=== PATIENT | female | born 1985 | race Caucasian/White ===

== ENCOUNTER 2019-02-08 05:28 | Emergency (ER) | payer SELFPAY ==
[~2019-02-08] VITALS: Ht 154.9 cm; Wt 94.8 kg
[2019-02-08 05:34] VITALS: BP 145/78
--- NOTE | 2019-02-08 05:38 | NUR ---
PT AMBULATED TO ER BED 7
--- NOTE | 2019-02-08 05:42 | NUR ---
PT BIB SELF C/O PAINFUL URINATION X3 DAYS. PT STATES 07/04 SHARP DYSRUIA. DENIES TRAUMA. DENIES FEVER OR CHILLS. DENIES N/V/D. SKIN WARM DRY AND INTACT. PT ACTING APPROPRIATLY. PT IN BED;BED IN LOWER LOCKED POSITION. PENDING [facility]T ROSARIO. PMH: [facility] Addendum: 02/08/19 at 0553 by [email or web address] PT BIB SELF C/O PAINFUL URINATION X3 DAYS. PT STATES 910 SHARP DYSRUIA. +FREQUENCY, +URGENCY. DENIES TRAUMA. DENIES FEVER OR CHILLS. DENIES N/V/D. SKIN WARM DRY AND INTACT. PT ACTING APPROPRIATLY. PT IN BED;BED IN LOWER LOCKED POSITION. PENDING EVERETT ROSARIO. PMH: [facility]
--- NOTE | 2019-02-08 05:47 | NUR ---
DR. HUBBARD AT BEDSIDE FOR EVALUATION.
--- NOTE | 2019-02-08 05:47 | NUR ---
ERMD AT BEDSIDE
[2019-02-08] MEDS ORDERED: PHENAZOPYRIDINE 100 MG TAB PO ONE (05:55)
[2019-02-08] MEDS ORDERED: SULFAMETH/TRIMETH DS 800/160MG 1 TAB PO ONE (05:55)
--- NOTE | 2019-02-08 06:07 | NUR ---
Patient discharged with v/s stable. Patient states pain has decreased and is ready to go home, patient acting appropriatly and pain 3/10 at this time. Written and verbal after care instructions given and explained. Patient alert, oriented and verbalized understanding of instructions. Ambulatory with steady gait. All questions addressed prior to discharge. ID band removed. Patient advised to follow up with PMD. Rx of Bactrim, and Pyridium given. Patient educated on indication of medication including possible reaction and side effects. Opportunity to ask questions provided and answered.
[2019-02-08 06:25] VITALS: BP 138/73
== END 2019-02-08 06:07 | disposition home or self-care (01) ==
LOC: MED 05:28
DX: N39.0 Urinary tract infection, site not specified (principal); E11.65 Type 2 diabetes mellitus with hyperglycemia
CPT/HCPCS: 81002; 81025; 99283

== ENCOUNTER 2021-03-23 19:51 | Emergency (ER) | payer SELFPAY ==
[~2021-03-23] VITALS: Ht 165.1 cm; Wt 83.9 kg
[2021-03-23 19:56] VITALS: BP 160/92
--- NOTE | 2021-03-23 20:07 | NUR ---
PT TAKEN TO BED 12
--- NOTE | 2021-03-23 20:12 | NUR ---
see complete assessment.
--- NOTE | 2021-03-23 20:14 | NUR ---
Dr. Carlin with pt for MSE
[2021-03-23] MEDS ORDERED: ONDANSETRON 4 MG/2 ML VIAL IVP ONE (20:20)
[2021-03-23] MEDS ORDERED: NACL 0.9% 1,000 ML IV ONE (20:20)
[2021-03-23] MEDS ORDERED: MORPHINE SULFATE 4 MG/ML SYR IVP ONE (20:20)
--- NOTE | 2021-03-23 20:33 | NUR ---
US AT BEDSIDE
[2021-03-23 20:49] LABS: BASOPHILS # (AUTO) 0.1 K/uL (0.00-0.22); EOSINOPHILS # (AUTO) 0.4 K/uL (0-0.4); EOSINOPHILS % (AUTO) 3.7 % (0.0-4.0); HEMATOCRIT 43.7 % (36-48); HEMOGLOBIN 15.3 g/dL (12.0-16.0); LYMPHOCYTES # (AUTO) 3.6 K/uL (2.5-16.5); MEAN CORPUSCULAR HEMOGLOBIN 30 pg (27-31); MEAN CORPUSCULAR HGB CONC 35 g/dL (33-37); MEAN CORPUSCULAR VOLUME 84.6 fL (80-94); MONOCYTES # (AUTO) 0.8 K/uL (0.8-1.0); MONOCYTES % (AUTO) 7.4 % (1.7-9.3); NEUTROPHILS # (AUTO) 5.5 K/uL (1.8-7.7); NEUTROPHILS % (AUTO) 52.9 % (42.2-75.2); PLATELET COUNT (AUTO) 263 K/uL (140-450); RED BLOOD CELL COUNT(AUTO) 5.17 MIL/uL (4.20-5.40); RED CELL DISTRIBUTION WIDTH 12.9 % (11.6-13.7); WHITE BLOOD COUNT (AUTO) 10.4 K/uL (4.8-10.8)
[2021-03-23 21:18] LABS: ANION GAP 11.1 (8-16); CARBON DIOXIDE 27.8 mmol/L (21-32); CREATININE 0.8 mg/dL (0.6-1.3); POTASSIUM 3.9 mmol/L (3.5-5.1); TOTAL BILIRUBIN 0.6 mg/dL (0.0-1.0)
[2021-03-23 21:19] LABS: ALBUMIN 3.7 g/dL (3.4-5.0)
[2021-03-23] MEDS ORDERED: ACET-8386 PO (22:17)
[2021-03-23] MEDS ORDERED: ONDA-24 PO (22:17)
[2021-03-23 22:39] VITALS: BP 115/77
--- NOTE | 2021-03-23 22:39 | NUR ---
d/c with VSS. d/c education provided. rx of norco and zofran given. opportunity to ask questions given and answered.
== END 2021-03-23 22:39 | disposition home or self-care (01) ==
LOC: MED 19:51
DX: R10.9 Unspecified abdominal pain (principal); R11.0 Nausea; E11.9 Type 2 diabetes mellitus without complications; I10 Essential (primary) hypertension; Z98.890 Other specified postprocedural states; Z79.899 Other long term (current) drug therapy
CPT/HCPCS: 36415; 76705; 80053; 81002; 81025; 83690; 84484; 85025; 96374; 96375; 99284; J2270; J2405; J7030; 96361

== ENCOUNTER 2024-01-15 18:47 | Emergency (ER) | payer MEDICAID, OTHER ==
[~2024-01-15] VITALS: Ht 154.9 cm; Wt 99.8 kg
[~2024-01-15 18:47] MED LIST: ACET-8905 PO; CIPR500T4 PO; LOPE-231 PO; ONDA-188 PO; ONDA-188 SL
[2024-01-15 19:12] VITALS: BP 158/81; PULSE 101; RESP 19; TEMP 98.4; O2SAT 98
[2024-01-15] MEDS ORDERED: GABA300C PO (20:04)
[2024-01-15 20:19] VITALS: BP 158/81; PULSE 101; RESP 19; TEMP 98.4; O2SAT 98
[2024-01-15] MEDS: KETOROLAC 60 MG/2 ML VIAL IM ONE (20:20)
== END 2024-01-15 20:19 | disposition home or self-care (01) ==
LOC: MED 18:47
DX: M79.672 Pain in left foot (principal); E11.9 Type 2 diabetes mellitus without complications; I10 Essential (primary) hypertension; Z98.890 Other specified postprocedural states; Z79.899 Other long term (current) drug therapy
CPT/HCPCS: 96372; 99283; J1885